=== PATIENT | female | born 1955 | race African-American/Black ===

== ENCOUNTER 2024-04-20 16:27 | Emergency (ER) | payer OTHER ==
[~2024-04-20] VITALS: Ht 154.9 cm; Wt 66.0 kg
[2024-04-20 16:49] VITALS: PULSE 71; RESP 20; O2SAT 97
--- NOTE | 2024-04-20 16:58 | ED.PDOC ---
Eye-HPI HPI Comments 68y F who presents to the ED for chief complaint of eye problem. Pt states she has bee having blurred vision from the R eye since 12 PM today. Pt denies any associated headache, dizziness, chest pain, shortness of breath, or associated symptoms. Pt denies these symmptoms in the past. Pt is alert and oriented x4 with no changes in vision, gait or speech. Pt hs stable vitals with only noted BP of 151/67. Pt otherwise denies any other symptoms at this time. Chief Complaint: Eye Problem Time Seen by MD: 16:55 Reviewed Notes: Nurses Notes Allergies: Coded Allergies: NO KNOWN ALLERGIES (Unverified , 04/20/24) Information Source: Patient Mode of Arrival: Ambulatory Brought in by: self Timing: Hours Duration: Since onset Prehospital treatment: None Eye Location: Right Lids: Normal Conjunctiva: Normal Cornea: Normal Pupils: Normal EOM: Normal Fundus: Normal Nose: Other Sinuses: Normal Oropharynx: Normal Onset: Spontaneous Throat Exposed to: None History of: None Last Tetanus: Unknown Modifying factors: Nothing Associated signs and symptoms: None Past Medical History PAST MEDICAL HISTORY: High Lipids, HTN Surgical History: Cholecystectomy Surgical History (Other): R ankle [employer]CH[employer]IC[employer] History: Denies all [employer] Hx Family History Family History: Family hx of heart rosa Social History Smoker: Non-Smoker Alcohol: Denies ETOH Use Drugs: Marijuana Lives In: Home Constitutional: denies: chills, diaphoresis, fatigue, fever, malaise, sweats, weakness, others EENTM: reports: blurred vision; denies: double vision, ear bleeding, ear discharge, ear drainage, ear pain, ear ringing, eye pain, eye redness, hearing loss, mouth pain, mouth swelling, nasal discharge, nose bleeding, nose congestion, nose pain, photophobia, tearing, throat pain, throat swelling, voice changes, others Respiratory: denies: cough, hemoptysis, orthopnea, SOB at rest, shortness of breath, SOB with excertion, stridor, wheezing, others Cardiovascular: denies: chest pain, dizzy spells, diaphoresis, Dyspnea on exertion, edema, irregular heart beat, left arm pain, lightheadedness, palpitations, PND, syncope, others Gastrointestinal: denies: abdomen distended, abdominal pain, blood streaked bowels, constipated, diarrhea, dysphagia, difficulty swallowing, hematemesis, melena, nausea, poor appetite, poor fluid intake, rectal bleeding, rectal pain, vomiting, others Genitourinary: denies: abnormal vagina bleeding, burning, dyspareunia, dysuria, flank pain, frequency, hematuria, incontinence, pain, , vagina discharge, urgency, others Neurological: denies: dizziness, fainting, headache, left sided numbness, left sided weakness, numbness, paresthesia, pre-existing deficit, right sided numbness, right sided weakness, seizure, speech problems, tingling, tremors, weakness, others Musculoskeletal: denies: back pain, gout, joint pain, joint swelling, muscle pain, muscle stiffness, neck pain, others Integumetry: denies: bruises, change in color, change in hair/nails, dryness, laceration, lesions, lumps, rash, wounds, others Allergic/Immunocompromised: denies: Difficulty Healing, Frequent Infections, Hives, Itching, others Hematologic/Lymphatic: denies: anemia, blood clots, easy bleeding, easy bruising, swollen glands, others Endocrine: denies: excessive hunger, excessive sweating, excessive thirst, excessive urination, flushing, intolerance to cold, intolerance to heat, unexplained weight gain, unexplained weight loss, others Psychiatric: denies: anxiety, bipolar disorder, depression, hopeless, panic disorder, schizophrenia, sleepless, suicidal, others All Other Systems: Reviewed and Negative Physical Exam General Appearance: No Apparent Distress HEENT: Pharynx Normal, TMs Normal Neck: Full Range of Motion, Non-Tender, Normal, Normal Inspection Respiratory: Chest Non-Tender, Lungs Clear, No Accessory Muscle Use, No Respiratory Distress, Normal Breath Sounds Cardiovascular: No Edema, No JVD, No Murmur, No Gallop, Normal Peripheral Pulses, Regular Rate/Rhythm Breast Exam: Deferred Gastrointestinal: No Organomegaly, Non Tender, No Pulsatile Mass, Normal Bowel Sounds, Soft Genitalia: Deferred Pelvic: Deferred Rectal: Deferred Extremities: No calf tenderness, Normal capillary refill, Normal inspection, Normal range of motion, Non-tender, No pedal edema Musculoskeletal : Apperance: Normal Neurologic: Alert, golf ball inspector II-XII nml as Tested, No Motor Deficits, Normal Affect, Normal Mood, No Sensory Deficits Cerebellar Function: Normal Reflexes: Normal Skin: Dry, Normal Color, Warm Lymphatic: No Adenopathy Was a procedure done? Was a procedure done?: No EENT DIFF Eye: Chalazion, Conjunctivitis, Allergic, Corneal Ulceration, Glaucoma, Pe riorbital Cellulits X-Ray, Labs, Meds, VS Vital Signs Date Time Temp Pulse Resp B/P (MAP) Pulse Ox O2 Delivery O2 Flow Rate FiO2 04/20/24 16:49 71 20 97 Room Air* 0 21 04/20/24 16:49 98.1 71 20 151/67 (95) 97 98.1 04/20/24 16:39 98.1 71 20 151/67 (95) 97 Lab Test 04/20/24 16:37 Range/Units POC Glucose 86 70-106 mg/dl EXAM: CT Head Without Intravenous Contrast IMPRESSION: No acute intracranial hemorrhage, midline shift or mass effect. At this time the patient will be discharged and will follow up with the primary care doctor for a referral to the operating room coordinator The patient was discharged The patient was vital signs are within normal limits The patient has vision to numbers Images Reviewed?: Images reviewed and evaluated by me Time of 1ST Reevaluation: 17:25 Reevaluation 1ST: Unchanged Patient Education/Counseling: Diagnosis, Treatment, Prognosis, Need For Follow Up Family Education/Counseling: No Family Present Additional Information - I reviewed the following notes from patient's past medical encounters: - The following tests were ordered, and results were reviewed by me: (Labs, X- Ray, EKG): CT head w/o contrast - Additional information was gathered from interviewing the following independent Historian: (Family, Other Providers, EMT): none - I reviewed and agreed with the following test results read by other provider: radiologist - I discussed treatments and results with medical personnel and: (consultants, family): none Departure 1 Departure Time of Disposition: 18:34 Impression: Primary Impression: Blurred vision, right eye Disposition: 01 HOME / SELF CARE / HOMELESS Condition: Fair Discharged With: Self Critical Care Note Critical Care Time?: No Stability Stability form required: No Heart Score Heart Score: Heart Score Response (Comments) Value History N/A 0 EKG N/A 0 Age N/A 0 Risk Factors N/A 0 Troponin N/A 0 Total 0 I personally scribed for ERIKA BOWER MD ([email or web address]) on 04/20/24 at 16:58. Electronically submitted by Yvette Tate ([facility] [place] I personally scribed for ERIKA BOWER MD ([email or web address]) on 04/20/24 at 17:22. Electronically submitted by Yvette Tate ([facility] [place] ERIKA BOWER MD Apr 20, 2024 16:58
--- NOTE | 2024-04-20 17:16 | DVH ---
EXAM: CT Head Without Intravenous Contrast CLINICAL INDICATION: right eye blurred vision TECHNIQUE: Axial computed tomography images of the head/brain without intravenous contrast. This CT exam was performed using one or more of the following dose reduction techniques: automated exposure control, adjustment of the mA and/or kV according to patient size, and/or use of iterative reconstru ction technique. CONTRAST: COMPARISON: None FINDINGS: BRAIN AND EXTRA-AXIAL SPACES: Unremarkable. No hemorrhage. No significant white matter disease. No edema. No ventriculomegaly. BONES/JOINTS: Unremarkable. No acute fracture. SOFT TISSUES: Unremarkable. SINUSES: Unremarkable as visualized. No acute sinusitis. MASTOID AIR CELLS: Unremarkable as visualized. No mastoid effusion. OTHER FINDINGS: . None. . . .. IMPRESSION: No acute intracranial hemorrhage, midline shift or mass effect.
[2024-04-20 19:05] VITALS: BP 137/78; PULSE 54; RESP 20; TEMP 98; O2SAT 100
== END 2024-04-20 19:07 | disposition home or self-care (01) ==
LOC: ER 16:27
DX: H53.8 Other visual disturbances (principal); E78.5 Hyperlipidemia, unspecified; I10 Essential (primary) hypertension; Z90.49 Acquired absence of other specified parts of digestive tract
CPT/HCPCS: 70450; 82962